=== PATIENT | female | born 1995 | race Caucasian/White ===

== ENCOUNTER 2018-03-18 12:20 | Emergency (ER) | payer BC ==
--- NOTE | 2018-03-18 12:35 | EDPHY ---
H & P Stated Complaint: "I think my Lyme disease has come back" because I feel weak today Time Seen by Provider: 03/18/18 12:31 HPI/ROS: CHIEF COMPLAINT: Diffuse arthralgias HISTORY OF PRESENT ILLNESS: The patient presents to the emergency department with complaints of diffuse bilateral arthralgias. She complains of pain in her bilateral shoulders, elbows, hips and knees. 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 She is concerned about recurrence of the disease. The patient does report recent camping in [place] with a possible mosquito bite. She denies any recent tick exposure. The patient takes no regular medications. She denies significant past medical history. She denies fever, cough, rash or dysuria. REVIEW OF SYSTEMS: A comprehensive 10 point review of systems is otherwise negative aside from elements mentioned in the history of present illness. Source: Patient Exam Limitations: No limitations - Personal History LMP (Females 10-55): Extended Cycle BCP/Inj Current Tetanus Diphtheria and Acellular Pertussis (TDAP): Yes - Medical/Surgical History Other PMH: Lyme as kid (treated) - Social History Smoking Status: Never smoked - Physical Exam Exam: General Appearance: Alert, no distress Eyes: Pupils equal and round no pallor or injection ENT, Mouth: Mucous membranes moist Respiratory: There are no retractions, lungs are clear to auscultation Cardiovascular: Regular rate and rhythm Gastrointestinal: Abdomen is soft and nontender, no masses, bowel sounds normal Neurological: A&O, normal motor function, normal sensory exam, normal cranial nerves Skin: Warm and dry, no rashes Musculoskeletal: Neck is supple nontender Extremities: Normal range of motion, no appreciable effusions Constitutional: Initial Vital Signs Temperature (C) 36.7 C 03/18/18 12:21 Heart Rate 73 03/18/18 12:21 Respiratory Rate 18 03/18/18 12:21 Blood Pressure 111/62 03/18/18 12:21 O2 Sat (%) 98 03/18/18 12:21 O2 Delivery Mode Room Air Allergies/Adverse Reactions: No Known Allergies Allergy (Unverified 03/18/18 12:24) Home Medications: Medication Instructions Recorded Control 03/18/18 Medical Decision Making ED Course/Re-evaluation: The patient presents to the ED with complaints of arthralgias. There is no clinical evidence of a septic arthritis. She is concerned about recurrent Lyme disease. I told her that I felt this would be unlikely in the setting of 1 day of symptoms. I do feel that she can manage her symptoms expectantly with ibuprofen. She is referred to on-call outpatient medicine for further workup. She is discharged home with customary aftercare instructions and return precautions. Differential Diagnosis: Differential diagnosis considered includes viral syndrome, septic arthritis, myalgias - Data Points Laboratory Results: Laboratory Results 03/18/18 13:22 03/18/18 13:22 03/18/18 03/18/18 03/18/18 13:22 13:22 13:22 WBC 8.41 10^3/uL 10^3/uL (3.80-9.50) RBC 4.66 10^6/uL 10^6/uL (4.18-5.33) Hgb 12.4 g/dL L g/dL (12.6-16.3) Hct 39.6 % % (38.0-47.0) MCV 85.0 fL fL (81.5-99.8) MCH 26.6 pg L pg (27.9-34.1) MCHC 31.3 g/dL L g/dL (32.4-36.7) RDW 15.6 % H % (11.5-15.2) Plt Count 336 10^3/uL 10^3/uL (150-400) MPV 9.8 fL fL (8.7-11.7) Neut % (Auto) 67.6 % % (39.3-74.2) Lymph % (Auto) 25.2 % % (15.0-45.0) [place] % (Auto) 4.0 % L % (4.5-13.0) Eos % (Auto) 2.3 % % (0.6-7.6) Baso % (Auto) 0.8 % % (0.3-1.7) Nucleat RBC Rel Count 0.0 % % (0.0-0.2) Absolute Neuts (auto) 5.68 10^3/uL 10^3/uL (1.70-6.50) Absolute Lymphs (auto) 2.12 10^3/uL 10^3/uL (1.00-3.00) Absolute Monos (auto) 0.34 10^3/uL 10^3/uL (0.30-0.80) Absolute Eos (auto) 0.19 10^3/uL 10^3/uL (0.03-0.40) Absolute Basos (auto) 0.07 10^3/uL 10^3/uL (0.02-0.10) Absolute Nucleated RBC 0.00 10^3/uL 10^3/uL (0-0.01) Immature Gran % 0.1 % % (0.0-1.1) Immature Gran # 0.01 10^3/uL 10^3/uL (0.00-0.10) ESR 2 MM/HR MM/HR (0-20) Sodium 137 mEq/L mEq/L (135-145) Potassium 3.5 mEq/L mEq/L (3.3-5.0) Chloride 108 mEq/L mEq/L (97-110) Carbon Dioxide 25 mEq/l mEq/l (22-31) Anion Gap 4 mEq/L L mEq/L (8-16) BUN 12 mg/dL mg/dL (7-23) Creatinine 0.7 mg/dL mg/dL (0.6-1.0) Estimated GFR > 60 Glucose 120 mg/dL H mg/dL (70-100) Calcium 9.5 mg/dL mg/dL (8.5-10.4) C-Reactive Protein < 5.0 mg/L mg/L (<10.0) Beta HCG, Qual NEGATIVE Departure - Departure Disposition: Home, Routine, Self-Care Clinical Impression: Arthralgia Condition: Good Instructions: Arthralgia (ED) Additional Instructions: 1. Take Ibuprofen or Motrin 600 mg by mouth three times a day. 2. Tylenol 650 mg every 6 hr as needed for pain. 3. You have been given the number of our Infectious Disease specialist to follow up with in the event of any protracted symptoms. You can also follow up with primary care at the hospital [facility]. Referrals: LISA LUGO ,. [Primary Care Provider] - As per Instructions Olga Kaplan MD [Medical Doctor] - As per Instructions
[2018-03-18 13:33] LABS: PLATELET COUNT 336 10^3/uL (150-400)
[2018-03-18 14:06] VITALS: BP 89/60
== END 2018-03-18 14:06 | disposition home or self-care (01) ==
DX: M25.50 Pain in unspecified joint (principal)

== ENCOUNTER 2018-03-19 13:47 | Emergency (ER) | payer BC ==
--- NOTE | 2018-03-19 14:31 | EDPHY ---
H & P Stated Complaint: Generalized body pain/weakness x 48hrs Time Seen by Provider: 03/19/18 14:04 HPI/ROS: Chief Complaint: Body aches HPI: 22-year-old woman complaining of 2 days of worsening generalized body pain. Patient was seen here yesterday and had an extensive workup which was unremarkable. She does state that she has a history of Lyme disease when she was 4 years old but has had no difficulties with cyst since that time. She did travel to [place] for 4 days in January. She says today she is having worsening generalized pain. She has taken 600 mg of Advil and 1000 mg of Tylenol without relief. No numbness or weakness. She has also developed a headache today. Generalized stiffness all over including stiff neck. No fevers or chills. No cough. No recent insect bites. No rash. Last menstrual. Is unknown but she is on continuous oral contraceptive. No vaginal discharge or bleeding. No urinary urgency or frequency. ROS: 10 point Review of Systems is negative except as noted in the HPI. PMH: Lyme disease as a child Social History: No smoking, no alcohol, no recreational drug use Family History: non-contributory Physical Exam: Gen: Awake, Alert, No Distress HEENT: Nose: no rhinorrhea Eyes: PERRLA, EOMI Mouth: Moist mucosa Neck: Supple, no JVD Chest: nontender, lungs clear to auscultation Heart: S1, S2 normal, no murmur Abd: Soft, non-tender, no guarding Back: no CVA tenderness, no midline tenderness Ext: no edema, non-tender Skin: no rash Neuro: CN II-XII intact, Sensation grossly intact, Strength 5/5 in bilateral upper and lower extremities - Personal History LMP (Females 10-55): Extended Cycle BCP/Inj Current Tetanus Diphtheria and Acellular Pertussis (TDAP): Yes - Medical/Surgical History Hx Asthma: No Hx Chronic Respiratory Disease: No Hx Diabetes: No Hx Cardiac Disease: No Hx Renal Disease: No Hx Cirrhosis: No Hx Alcoholism: No Hx HIV/AIDS: No Hx Splenectomy or Spleen Trauma: No Other PMH: Lyme as kid (treated) - Social History Smoking Status: Never smoked Constitutional: Initial Vital Signs Temperature (C) 36.7 C 03/19/18 13:49 Heart Rate 81 03/19/18 13:49 Respiratory Rate 16 03/19/18 13:49 Blood Pressure 106/69 03/19/18 13:49 O2 Sat (%) 97 03/19/18 13:49 O2 Delivery Mode Room Air Allergies/Adverse Reactions: No Known Allergies Allergy (Verified 03/19/18 13:52) Home Medications: Medication Instructions Recorded Control 03/18/18 Medical Decision Making - Data Points Laboratory Results: Laboratory Results 03/19/18 14:30 03/19/18 14:30 03/19/18 03/19/18 03/19/18 14:42 14:30 14:30 WBC 6.44 10^3/uL 10^3/uL (3.80-9.50) RBC 4.38 10^6/uL 10^6/uL (4.18-5.33) Hgb 11.7 g/dL L g/dL (12.6-16.3) Hct 37.9 % L % (38.0-47.0) MCV 86.5 fL fL (81.5-99.8) MCH 26.7 pg L pg (27.9-34.1) MCHC 30.9 g/dL L g/dL (32.4-36.7) RDW 15.7 % H % (11.5-15.2) Plt Count 313 10^3/uL 10^3/uL (150-400) MPV 10.2 fL fL (8.7-11.7) Neut % (Auto) 50.6 % % (39.3-74.2) Lymph % (Auto) 37.4 % % (15.0-45.0) [place] % (Auto) 6.4 % % (4.5-13.0) Eos % (Auto) 4.5 % % (0.6-7.6) Baso % (Auto) 0.9 % % (0.3-1.7) Nucleat RBC Rel Count 0.0 % % (0.0-0.2) Absolute Neuts (auto) 3.26 10^3/uL 10^3/uL (1.70-6.50) Absolute Lymphs (auto) 2.41 10^3/uL 10^3/uL (1.00-3.00) Absolute Monos (auto) 0.41 10^3/uL 10^3/uL (0.30-0.80) Absolute Eos (auto) 0.29 10^3/uL 10^3/uL (0.03-0.40) Absolute Basos (auto) 0.06 10^3/uL 10^3/uL (0.02-0.10) Absolute Nucleated RBC 0.00 10^3/uL 10^3/uL (0-0.01) Immature Gran % 0.2 % % (0.0-1.1) Immature Gran # 0.01 10^3/uL 10^3/uL (0.00-0.10) Sodium 138 mEq/L mEq/L (135-145) Potassium 4.2 mEq/L mEq/L (3.3-5.0) Chloride 109 mEq/L mEq/L (97-110) Carbon Dioxide 23 mEq/l mEq/l (22-31) Anion Gap 6 mEq/L L mEq/L (8-16) BUN 11 mg/dL mg/dL (7-23) Creatinine 0.7 mg/dL mg/dL (0.6-1.0) Estimated GFR > 60 Glucose 85 mg/dL mg/dL (70-100) Calcium 9.0 mg/dL mg/dL (8.5-10.4) Total Bilirubin 0.4 mg/dL mg/dL (0.1-1.4) AST 16 IU/L IU/L (14-46) ALT 22 IU/L IU/L (9-52) Alkaline Phosphatase 63 IU/L IU/L (38-126) Creatine Kinase 41 IU/L IU/L (0-156) Total Protein 6.4 g/dL g/dL (6.3-8.2) Albumin 3.8 g/dL g/dL (3.5-5.0) Urine Color YELLOW Urine Appearance CLEAR Urine pH 6.0 (5.0-7.5) Ur Specific [place] 1.015 (1.002-1.030) Urine Protein NEGATIVE (NEGATIVE) Urine Ketones NEGATIVE (NEGATIVE) Urine Blood NEGATIVE (NEGATIVE) Urine Nitrate NEGATIVE (NEGATIVE) Urine Bilirubin NEGATIVE (NEGATIVE) Urine Urobilinogen NEGATIVE EU EU (0.2-1.0) Ur Leukocyte Esterase NEGATIVE (NEGATIVE) Urine Glucose NEGATIVE (NEGATIVE) Medications Given: Discontinued Medications Sodium Chloride (Ns) 1,000 mls @ 3,000 mls/hr IV ONCE ONE Stop: 03/19/18 15:09 Last Admin: 03/19/18 14:51 Dose: 1,000 mls Ketorolac Tromethamine (Toradol) 15 mg IVP EDNOW ONE Stop: 03/19/18 15:32 Last Admin: 03/19/18 15:41 Dose: 15 mg Departure - Departure Disposition: Home, Routine, Self-Care Clinical Impression: Myalgia Condition: Good Instructions: Musculoskeletal Pain (ED), Hydrocodone/Acetaminophen (By mouth) Additional Instructions: Follow up with primary care physician in 2-3 days for further evaluation. Return emergency department for weakness, worsening uncontrolled fever, worsening pain, or any other concerns Referrals: NONE *PRIMARY CARE P,. [Primary Care Provider] - As per Instructions
[2018-03-19] MEDS ORDERED: NS 1,000 ML IV ONE (14:50)
[2018-03-19 15:06] LABS: PLATELET COUNT 313 10^3/uL (150-400)
[2018-03-19 15:15] LABS: CREATINE KINASE 41 IU/L (0-156)
[2018-03-19] MEDS ORDERED: KETOROLAC 15 MG/1 ML SDV IVP ONE (15:31)
[2018-03-19] MEDS ORDERED: HYDROCOD/APAP 5/325 PREPACK#6 BTL TAKEHOME ONE (15:57)
[2018-03-19 16:14] VITALS: BP 95/67
== END 2018-03-19 16:14 | disposition home or self-care (01) ==
DX: M79.1 Myalgia (principal)
CPT/HCPCS: 96374; J1885